=== PATIENT | male | born 1975 | race Caucasian/White ===

== ENCOUNTER → 2020-07-16 | Outpatient (CLI) | payer OTHER ==
[~2020-07-16] MED LIST: ASPI-963 PO; BUPIVACAINE/PF 0.5% ONE; GADOTERATE 5 MMOL/10 ML VIAL ONE; IBUP-1902 PO; LIDOCAINE 1%, 10ML ONE; MULT-516 PO; OMNIPAQUE 300 MG/ML, 10ML VIAL ONE; ROPivacaine/PF 0.2%, 10 ML ONE; SODIUM BICARBONATE 4.2%, 5ML ONE
== END | disposition home or self-care (01) ==
LOC: RAD 12:57
PROVIDERS: ATTEND Orthopaedic Surgery
DX: M25.552 Pain in left hip (principal); S76.012A Strain of muscle, fascia and tendon of left hip, initial encounter; M16.12 Unilateral primary osteoarthritis, left hip; X58.XXXA Exposure to other specified factors, initial encounter; Y93.89 Activity, other specified; Y92.89 Other specified places as the place of occurrence of the external cause; Y99.8 Other external cause status
CPT/HCPCS: 27093; 73525; 73722; A9575; J3490; Q9967; S0020; J2795